=== PATIENT | male | born 1955 | race African-American/Black ===

== ENCOUNTER 2017-06-20 12:50 | Inpatient (IN) | payer SELFPAY ==
[~2017-06-20] VITALS: Ht 177.8 cm; Wt 111.1 kg
[2017-06-20 14:22] LABS: HEMATOCRIT. 43.8 % (42.0-52.0); HEMOGLOBIN. 14.8 g/dL (14.0-18.0); MEAN CORPUSCULAR HEMOGLOBIN 27.4 pg (28.0-32.0); MEAN CORPUSCULAR VOLUME 81.1 fL (80.0-94.0); MEAN PLATELET VOLUME 7.6 fl (7.4-10.4); PLATELET 196 x1000/uL (130-400); RED CELL DISTRIBUTION WIDTH 14.2 % (11.6-14.6)
[2017-06-20 14:31] LABS: INR 1.1; PROTHROMBIN TIME 11.1 sec (9.4-11.6)
[2017-06-20 14:33] LABS: CHLORIDE 103 mEq/L (98-107)
[2017-06-20 14:42] LABS: PLATELET ESTIMATE NORMAL
[2017-06-20] MEDS ORDERED: ASPIRIN 81MG TABLET PO STA (20:16)
[2017-06-20] MEDS ORDERED: ALBUTEROL (0.083%) 2.5MG/3ML NEB HHN STA (20:16)
[2017-06-20] MEDS ORDERED: IPRATROPIUM BROMIDE (0.02%) 0.5MG/2.5ML NEB HHN STA (20:16)
[2017-06-20] MEDS ORDERED: METHYLPREDNISOLONE SOD SUCC 125 MG/2 ML VIAL IV STA (20:16)
[2017-06-20] MEDS ORDERED: NITROGLYCERIN 0.4MG TABLET SL SL PRN (20:30)
[2017-06-20] MEDS ORDERED: SODIUM CHLORIDE 0.9% 1000ML BAG (SEPSIS BOLUS) IV ONE (21:30)
[2017-06-20] MEDS ORDERED: LEVOFLOXACIN 750MG PREMIX 150 ML IV ONE (21:30)
[2017-06-21] VITALS (7 sets, daily range): BP systolic 109–146; BP diastolic 67–83
[2017-06-21] MEDS ORDERED: ALBU18HF2 IH (02:32)
[2017-06-21] MEDS ORDERED: HYDROCODONE/ACETAMINOPHEN 5/325MG TABLET PO PRN (07:45)
[2017-06-21] MEDS ORDERED: CLONIDINE 0.1MG TABLET PO PRN (07:45)
[2017-06-21] MEDS ORDERED: ACETAMINOPHEN 325MG TABLET PO PRN (07:45)
[2017-06-21] MEDS ORDERED: GUAIFENESIN 200MG/10ML SUGAR FREE UDC PO PRN (07:45)
[2017-06-21] MEDS: ENOXAPARIN 40MG/0.4ML SYR SUBCUT SCH (08:35)
[2017-06-21] MEDS: AMLODIPINE 10MG TABLET PO SCH (08:35)
[2017-06-21] MEDS: ASPIRIN 81MG EC TABLET PO SCH (08:35)
[2017-06-21] MEDS: METHYLPREDNISOLONE SOD SUCC 125 MG/2 ML VIAL IV SCH ×3 (08:36→22:14)
[2017-06-21] MEDS ORDERED: DOCUSATE SODIUM 100MG CAPSULE PO PRN (09:00)
[2017-06-21 16:34] LABS: CREATINE KINASE 1566 IU/L (39-308); CREATINE KINASE MB FRACTION 13.9 ng/mL (0.5-3.6)
[2017-06-21] MEDS ORDERED: ZOLPIDEM TARTRATE 5MG TABLET PO PRN (19:30)
[2017-06-21] MEDS: LEVOFLOXACIN 500MG PREMIX 100 ML IV SCH (22:13)
[2017-06-22] MEDS: METHYLPREDNISOLONE SOD SUCC 125 MG/2 ML VIAL IV SCH ×4 (03:00→20:46)
[2017-06-22 04:00] VITALS: BP 139/73
[2017-06-22 05:52] LABS: HEMATOCRIT. 41.2 % (42.0-52.0); HEMOGLOBIN. 13.5 g/dL (14.0-18.0); LYMPHOCYTES % 10.6 % (20.0-50.0); MEAN CORPUSCULAR VOLUME 82.1 fL (80.0-94.0); MEAN PLATELET VOLUME 8.4 fl (7.4-10.4); NEUTROPHILS % 83.4 % (40.0-76.0); PLATELET 218 x1000/uL (130-400); RED BLOOD CELL COUNT 5.01 mill/uL (4.7-6.1); RED CELL DISTRIBUTION WIDTH 14.3 % (11.6-14.6)
[2017-06-22 06:44] LABS: CHLORIDE 110 mEq/L (98-107)
[2017-06-22 07:17] LABS: CREATINE KINASE 1152 IU/L (39-308); CREATINE KINASE MB FRACTION 12.4 ng/mL (0.5-3.6); HDL CHOLESTEROL 43 mg/dL (40-59); LDL CHOLESTEROL 87 mg/dL (5-100)
[2017-06-22 07:55] VITALS: BP 128/69
[2017-06-22] MEDS: ASPIRIN 81MG EC TABLET PO SCH (09:26)
[2017-06-22] MEDS: AMLODIPINE 10MG TABLET PO SCH (09:26)
[2017-06-22] MEDS: ENOXAPARIN 40MG/0.4ML SYR SUBCUT SCH (09:27)
[2017-06-22 12:00] VITALS: BP 123/74
[2017-06-22] MEDS: IPRATROPIUM/ALBUTEROL 0.5-3(2.5)MG/3ML NEB INH PRN (15:45)
[2017-06-22 16:00] VITALS: BP 127/78
[2017-06-22] MEDS: LEVOFLOXACIN 500MG PREMIX 100 ML IV SCH (20:46)
[2017-06-23] VITALS: BP 134/66
[2017-06-23] MEDS: METHYLPREDNISOLONE SOD SUCC 125 MG/2 ML VIAL IV SCH ×2 (03:00→08:49)
[2017-06-23 04:00] VITALS: BP 124/68
[2017-06-23] MEDS: IPRATROPIUM/ALBUTEROL 0.5-3(2.5)MG/3ML NEB INH PRN ×2 (04:50→09:17)
[2017-06-23 07:12] LABS: CREATINE KINASE 907 IU/L (39-308)
[2017-06-23 08:00] VITALS: BP 119/77
[2017-06-23] MEDS: AMLODIPINE 10MG TABLET PO SCH (08:45)
[2017-06-23] MEDS: ASPIRIN 81MG EC TABLET PO SCH (08:45)
[2017-06-23] MEDS: ENOXAPARIN 40MG/0.4ML SYR SUBCUT SCH (08:46)
[2017-06-23 12:00] VITALS: BP 126/69
[2017-06-23 12:14] VITALS: BP 126/69
== END 2017-06-23 13:55 | disposition home or self-care (01) | DRG 351 ==
LOC: ER 13:14 → 7WST 23:10 → EDBEDREQTM 23:36 → EDBEDREQ 23:36 → ENRESERV 23:38
PROVIDERS: ADMIT Hospitalist; ATTEND Hospitalist
DX: M62.82 Rhabdomyolysis (principal); J45.901 Unspecified asthma with (acute) exacerbation; I10 Essential (primary) hypertension; Z88.0 Allergy status to penicillin; Z79.899 Other long term (current) drug therapy
CPT/HCPCS: 36415; 71045; 80053; 80061; 82550; 82553; 83605; 83690; 83880; 84484; 85025; 85610; 87040; 93005; 93306; 93970; 94640; 94644; 96365; 96366; 96372; 96375; 99285; J1650; J1956; J2930; J7030; J7040; J7050; J7611; J7620

== ENCOUNTER 2018-06-22 06:19 | Emergency (ER) | payer MEDICAID ==
[~2018-06-22] VITALS: Ht 177.8 cm; Wt 102.0 kg
[~2018-06-22 06:19] MED LIST: ALBU18HF2 IH
[2018-06-22] MEDS ORDERED: ALBUTEROL (0.083%) 2.5MG/3ML NEB HHN STA (06:35)
[2018-06-22] MEDS ORDERED: IPRATROPIUM BROMIDE (0.02%) 0.5MG/2.5ML NEB HHN STA (06:35)
[2018-06-22] MEDS ORDERED: METHYLPREDNISOLONE SOD SUCC 125 MG/2 ML VIAL IV STA (06:35)
[2018-06-22 07:20] LABS: CHLORIDE 103 mEq/L (98-107)
[2018-06-22 07:24] LABS: BASOPHILS % 0.2 % (0.0-2.0); HEMATOCRIT. 45.4 % (42.0-52.0); HEMOGLOBIN. 14.8 g/dL (14.0-18.0); MEAN CORPUSCULAR HEMOGLOBIN 27.3 pg (28.0-32.0); MEAN CORPUSCULAR VOLUME 84.1 fL (80.0-94.0); MEAN PLATELET VOLUME 8.4 fl (7.4-10.4); NEUTROPHILS % 64.8 % (40.0-76.0); PLATELET 229 x1000/uL (130-400); RED CELL DISTRIBUTION WIDTH 14.4 % (11.6-14.6)
[2018-06-22] MEDS ORDERED: IPRATROPIUM/ALBUTEROL 0.5-3(2.5)MG/3ML NEB ONE (08:01)
[2018-06-22] MEDS ORDERED: IPRATROPIUM BROMIDE (0.02%) 0.5MG/2.5ML NEB ONE (08:02)
[2018-06-22] MEDS ORDERED: LEVOFLOXACIN 500MG PREMIX 100 ML IV SCH (09:45)
[2018-06-22] MEDS ORDERED: IPRATROPIUM/ALBUTEROL 0.5-3(2.5)MG/3ML NEB INH PRN (09:45)
[2018-06-22] MEDS ORDERED: DOCUSATE SODIUM 100MG CAPSULE PO PRN (09:45)
[2018-06-22] MEDS ORDERED: ONDANSETRON HCL 4MG/2ML INJ IV PRN (09:45)
[2018-06-22] MEDS ORDERED: GUAIFENESIN/DM 600MG/30MG ER TAB 12HR PO SCH (09:45)
[2018-06-22] MEDS ORDERED: GUAIFENESIN 200MG/10ML SUGAR FREE UDC PO PRN (09:45)
[2018-06-22] MEDS ORDERED: CLONIDINE 0.1MG TABLET PO PRN (09:45)
[2018-06-22] MEDS ORDERED: MAGNESIUM/ALUMINUM HYDROXIDE/SIMETHICONE 30ML UDC PO PRN (09:45)
[2018-06-22] MEDS ORDERED: ACETAMINOPHEN 325MG TABLET PO PRN (09:45)
[2018-06-22] MEDS ORDERED: IPRATROPIUM/ALBUTEROL 0.5-3(2.5)MG/3ML NEB HHN SCH (09:45)
[2018-06-22] MEDS ORDERED: ENOXAPARIN 40MG/0.4ML SYR SUBCUT SCH (09:45)
[2018-06-22] MEDS ORDERED: KETOROLAC 15MG/ML VIAL IV PRN (09:45)
[2018-06-22] MEDS ORDERED: ZOLPIDEM TARTRATE 5MG TABLET PO PRN (09:45)
[2018-06-22 11:45] VITALS: BP 142/73
[2018-06-22] MEDS ORDERED: DILTIAZEM HCL 60MG TABLET PO SCH (12:00)
[2018-06-22] MEDS ORDERED: METHYLPREDNISOLONE SOD SUCC 125 MG/2 ML VIAL IV SCH (14:00)
[2018-06-22] MEDS ORDERED: FAMOTIDINE 20MG TABLET PO SCH (21:00)
[2018-06-23] MEDS ORDERED: ASPIRIN 325MG EC TABLET PO SCH (09:00)
== END 2018-06-22 12:00 | disposition left against medical advice (07) ==
LOC: ER 06:19 → EDBEDREQTM 07:55 → EDBEDREQ 07:55 → EDBEDREQSVC 09:05 → ER 12:00 → CANBEDREQ 13:32
DX: R06.00 Dyspnea, unspecified (principal); R07.89 Other chest pain; I10 Essential (primary) hypertension; J44.9 Chronic obstructive pulmonary disease, unspecified; Z88.0 Allergy status to penicillin
CPT/HCPCS: 36415; 71045; 80053; 80320; 83036; 83880; 84484; 85025; 85379; 93005; 94640; 94660; 96374; 99291; J2930; J7620; G0480

== ENCOUNTER 2019-02-07 14:39 | Inpatient (IN) | payer SELFPAY ==
[~2019-02-07] VITALS: Ht 177.8 cm; Wt 103.5 kg
[2019-02-07] MEDS ORDERED: ASPIRIN 81MG TABLET PO ONE (16:00)
[2019-02-07] MEDS ORDERED: NITROGLYCERIN 0.4MG TABLET SL SL PRN (16:00)
[2019-02-07 16:35] LABS: BASOPHILS % 0.3 % (0.0-2.0); EOSINOPHILS % 2.6 % (0.0-5.0); HEMOGLOBIN. 14.5 g/dL (14.0-18.0); LYMPHOCYTES % 36.2 % (20.0-50.0); MEAN CORPUSCULAR HEMOGLOBIN 27.5 pg (28.0-32.0); MEAN CORPUSCULAR VOLUME 83.2 fL (80.0-94.0); MEAN PLATELET VOLUME 8.3 fl (7.4-10.4); MONOCYTES % 9.4 % (2.0-8.0); NEUTROPHILS % 51.5 % (40.0-76.0); PLATELET 195 x1000/uL (130-400); RED BLOOD CELL COUNT 5.28 mill/uL (4.7-6.1); RED CELL DISTRIBUTION WIDTH 14.8 % (11.6-14.6)
[2019-02-07 16:38] LABS: CHLORIDE 110 mEq/L (98-107)
[2019-02-07 21:45] VITALS: BP 125/95
[2019-02-07] MEDS ORDERED: CLONIDINE 0.1MG TABLET PO PRN (21:45)
[2019-02-07] MEDS ORDERED: ACETAMINOPHEN 325MG TABLET PO PRN (21:45)
[2019-02-08] VITALS: BP 126/79
[2019-02-08] MEDS ORDERED: NITR0.4T SL (00:16)
[2019-02-08 01:07] LABS: CREATINE KINASE MB FRACTION 6.4 ng/mL (0.5-3.6)
[2019-02-08] MEDS: IPRATROPIUM/ALBUTEROL 0.5-3(2.5)MG/3ML NEB HHN PRN ×3 (02:38→14:21)
[2019-02-08 04:00] VITALS: BP 129/80
[2019-02-08 06:10] LABS: BASOPHILS % 0.4 % (0.0-2.0); EOSINOPHILS % 2.6 % (0.0-5.0); HEMATOCRIT. 44.1 % (42.0-52.0); HEMOGLOBIN. 14.4 g/dL (14.0-18.0); LYMPHOCYTES % 43.3 % (20.0-50.0); MEAN CORPUSCULAR HEMOGLOBIN 28.2 pg (28.0-32.0); MEAN CORPUSCULAR VOLUME 86.3 fL (80.0-94.0); MEAN PLATELET VOLUME 8.4 fl (7.4-10.4); MONOCYTES % 8.8 % (2.0-8.0); NEUTROPHILS % 44.9 % (40.0-76.0); PLATELET 173 x1000/uL (130-400); RED BLOOD CELL COUNT 5.11 mill/uL (4.7-6.1); RED CELL DISTRIBUTION WIDTH 14.6 % (11.6-14.6)
[2019-02-08 06:25] LABS: CHLORIDE 109 mEq/L (98-107)
[2019-02-08 06:33] LABS: LDL CHOLESTEROL 86 mg/dL (5-100)
[2019-02-08 06:34] LABS: CREATINE KINASE MB FRACTION 5.6 ng/mL (0.5-3.6)
[2019-02-08 06:35] LABS: HDL CHOLESTEROL 60 mg/dL (40-59)
[2019-02-08 08:00] VITALS: BP 105/56
[2019-02-08] MEDS ORDERED: ASPIRIN 81MG EC TABLET PO SCH (09:00)
[2019-02-08] MEDS ORDERED: ENOXAPARIN 30MG/0.3ML SYR SUBCUT SCH (09:00)
[2019-02-08] MEDS ORDERED: FAMOTIDINE 20MG TABLET PO SCH (09:00)
[2019-02-08] MEDS ORDERED: MONT10TA21 MT (11:44)
[2019-02-08] MEDS ORDERED: ALBU18HF2 IH (11:44)
[2019-02-08 12:00] VITALS: BP 125/69
[2019-02-08 14:17] VITALS: BP 105/56
== END 2019-02-08 15:00 | disposition home or self-care (01) | DRG 203 ==
LOC: ER 14:39 → 6WST 18:58 → ENRESERV 20:08
PROVIDERS: ADMIT Internal Medicine Geriatric Medicine; ATTEND Internal Medicine Geriatric Medicine
DX: R07.89 Other chest pain (principal); E66.9 Obesity, unspecified; I10 Essential (primary) hypertension; J44.9 Chronic obstructive pulmonary disease, unspecified; J45.40 Moderate persistent asthma, uncomplicated; Z68.32 Body mass index [BMI] 32.0-32.9, adult; Z88.0 Allergy status to penicillin
CPT/HCPCS: 36415; 71045; 80061; 82553; 83880; 84484; 93005; 93306; 99285; J1650; J7620